=== PATIENT | male | born 1995 | race Caucasian/White ===

== ENCOUNTER 2024-02-11 13:47 | Emergency (ER) | payer OTHER ==
[2024-02-11 13:59] VITALS: BP 132/89; PULSE 94; RESP 20; TEMP 98.6; BMI 31.1
[2024-02-11] MEDS ORDERED: ACETAMINOPHEN 500 MG TABLET (FP) ONE (15:30)
[2024-02-11] MEDS: ACETAMINOPHEN 500 MG TABLET (FP) PO ONE (15:31)
== END 2024-02-11 16:57 | disposition home or self-care (01) ==
LOC: JERFT 13:47
DX: S62.317A Displaced fracture of base of fifth metacarpal bone, left hand, initial encounter for closed fracture (principal); V49.40XA Driver injured in collision with unspecified motor vehicles in traffic accident, initial encounter
CPT/HCPCS: 73130-TC-LT-FY; 99283-25